=== PATIENT | female | born 1980 ===

== ENCOUNTER 2019-04-03 09:00 | Emergency (ER) | payer OTHER ==
[~2019-04-03] VITALS: Ht 152.4 cm; Wt 54.4 kg
[2019-04-03] MEDS ORDERED: SKELAXIN800 MG PO (13:49)
[2019-04-03] MEDS ORDERED: KETO10TA2 PO (13:49)
[2019-04-03] MEDS ORDERED: MEDROLPACK PO (13:49)
== END 2019-04-03 14:02 ==
LOC: ER 09:00
DX: M25.571 Pain in right ankle and joints of right foot (principal)